=== PATIENT | female | born 1990 | race Caucasian/White ===

== ENCOUNTER 2017-11-25 14:14 | Inpatient (IN) | payer OTHER ==
[~2017-11-25] VITALS: Ht 170.2 cm; Wt 45.4 kg
[2017-11-25 14:37] LABS: ABSOLUTE BASOPHIL COUNT 0 /CUMM (0.0-0.2); ABSOLUTE EOSINOPHIL COUNT 0 /CUMM (0.0-0.7); ABSOLUTE GRANULOCYTE CT 5.9 /CUMM (1.4-6.5); ABSOLUTE LYMPH COUNT 2.8 /CUMM (1.2-3.4); ABSOLUTE MONOCYTE COUNT 0.6 /CUMM (0.10-0.60); BASOPHIL % 0.2 % (0.0-2.0); EOSINOPHIL % 0.5 % (0-5); GRANULOCYTE % 63.1 % (42.2-75.2); MEAN CORPUSCULAR HGB CONC 33.4 G/DL (33.0-37.0); MEAN PLATELET VOLUME 7.5 FL (7.4-10.4); PLATELET COUNT 327 /CUMM (130-400); RBC DISTRIBUTION WIDTH 13.1 % (11.5-14.5); WHITE BLOOD CELL COUNT 9.4 /CUMM (4.8-10.8)
--- NOTE | 2017-11-25 15:33 | ED PSYCHIATRIC COMPLAINT ---
See Addendum History of Present Illness General Chief Complaint: Psychiatric Related Complaint Stated Complaint: PSY Source: patient, old records Exam Limitations: PSYCHIATRIC DISORDER Allergies Coded Allergies: No Known Allergies (11/25/17) Reconcile Medications Buprenorphine (Buprenorphine HCl) 8 MG TAB.SUBL 2 TAB SL DAILY OPIOID DEPENDENCE (Reported) Dextroamphetamine/Amphetamine (Adderall XR 30 MG Capsule) 30 MG CAP.ER.24H 1 CAP PO QAM MENTAL HEALTH (Reported) Triage Note: PT STATES SHE NEEDS TO BE CHECKED OUT PT IS MOVING INTO HER BOYFRIENDS AND WANTS TO BE CHECKED OUT. PT WAS PICKED UP AT SCHOOL FOR MANIC BEHAVIOR. PT CURRENTLY AT [facility] FOR [employer] AND NOT ACTING APPROPRIATLY. PT MANIC INTRIAGE HAVING DIFFICULTY STAYING STILL. Triage Nurses Notes Reviewed? yes : No Patient currently breastfeeds: No HPI: Patient presents for evaluation of "doing everything checked out". Patient cannot be more specific than that. Patient is currently being treated for urinary tract infection with Macrobid. Patient states that she doesn't drink enough water as the underlying cause for her UTIs. (Pita GOMEZ,Tono Huber) Vital Signs & Intake/Output Vital Signs & Intake/Output Vital Signs Date Time Temp Pulse Resp B/P B/P Pulse O2 O2 Flow FiO2 Mean Ox Delivery Rate 11/26 1225 96.2 91 18 104/59 98 Room Air 11/26 0952 96.3 98 20 90/52 98 11/26 0806 97.1 109 20 106/58 100 Room Air 11/26 0602 96.7 90 18 99/60 98 Room Air 11/26 0306 97.2 86 18 92/56 98 Room Air 11/25 2242 96.6 94 20 92/51 99 Room Air 11/25 1855 97.1 88 19 107/61 100 Room Air ED Intake and Output 11/26 0000 11/25 1200 Intake Total 0 Output Total Balance 0 Intake, Oral 0 Patient 99 lb 15.99 oz Weight Weight Estimated Measurement Method (Tono Mensah DO) Past History Travel History Traveled to [place] past 21 day No Medical History Any Pertinent Medical History? see below for history Surgical History Surgical History: non-contributory Psychosocial History What is your primary language Sami Tobacco Use: Current Daily Use Daily Tobacco Use Amount/Type: => 5 Cigarettes daily ETOH Use: denies use Illicit Drug Use: marijuana Family History Hx Contributory? No (Pita GOMEZ,Tono Huber) Review of Systems Review of Systems Constitutional: Reports: no symptoms. EENTM: Reports: no symptoms. Respiratory: Reports: no symptoms. Cardiovascular: Reports: no symptoms. GI: Reports: no symptoms. Genitourinary: Reports: no symptoms. Musculoskeletal: Reports: no symptoms. Skin: Reports: no symptoms. Neurological/Psychological: Reports: no symptoms. Hematologic/Endocrine: Reports: no symptoms. Immunologic/Allergic: Reports: no symptoms. All Other Systems: Reviewed and Negative (Pita GOMEZ,Tono Huber) Physical Exam Physical Exam General Appearance: SEE BELOW Neurological/Psychiatric: SEE BELOW Comments: General: Alert, calm, cooperative Head: Normocephalic, atraumatic Eyes: Normal inspection, no nystagmus, EOMI Ears: Normal inspection Nose: Normal inspection Throat: Moist mucosa Neck: Supple, no goiter Heart: Regular rate and rhythm, no murmurs rubs or gallops Lungs: Clear to auscultation bilaterally with good air entry Abdomen: Soft nontender nondistended, normal bowel sounds Chest: Nontender Extremities: Normal range of motion grossly, mild tremors present, no cyanosis clubbing or edema of the upper extremities Neurologic: cranial nerves II through XII grossly intact, speech clear, gait normal Psychiatric: No apparent delusions or hallucinations, no pressured speech or thought blocking (Pita GOMEZ,Tono Huber) SAD PERSONS Done? unobtained due to conditi (Tono Mensah DO) Progress Comments: 11/25/2017 3:30:24 PM patient is being moved into a room from the hallway due to emotional lability and wandering about the emergency department. 11/25/2017 5:03:09 PM patient's case discussed with crisis. Awaiting medical clearance. Crisis is concerned about possible drug abuse or inappropriate use of her amphetamine prescription. Possible elio discussed as well. 11/26/2017 7:33:15 AM patient signed out to me by Dr. José at shift recovery coach. (Pita GOMEZ,Tono Huber) Differential Diagnosis: drug intoxication, drug overdose, PSYCHOSIS, ELIO Plan of Care: Orders Procedure Date/time Status Regular Diet 11/26 D Active Admit to inpatient psych 11/26 1447 Active Patient Data - inpatient psych 11/26 1428 Active Admit to inpatient psych 11/26 1428 Active Vital Signs 11/26 UNK Active Nursing Misc 11/26 UNK Active Alternative Nursing Therapy 11/26 UNK Active Activity/Ambulation 11/26 UNK Active Add-on Test (ER Only) 11/25 1701 Active Patient Safety Monitor 11/25 1604 Active ED CRISIS PSYCH CONSULT 11/25 1604 Active Add-on Test (ER Only) 11/25 1449 Active HUMAN BETA HCG SCREEN 11/25 1430 Complete ETHANOL 11/25 1430 Complete Current Medications Sig/Paola Start time Last Medication Dose Stop Time Status Admin Buprenorphine/ 2 TAB 0800 11/27 0800 UNVr Naloxone (Suboxone) Buprenorphine/ 1 TAB ONCE ONE 11/26 1500 UNVr Naloxone 11/26 1501 (Suboxone) Acetaminophen 325 MG Q6-PRN PRN 11/26 1445 UNVr (Tylenol) Al Hydroxide/Mg 30 ML Q4-6 PRN PRN 11/26 1445 UNVr Hydroxide (Maalox Plus) Benztropine Mesylate 1 MG Q6P PRN 11/26 1445 UNVr (Cogentin 1 MG Tablet) Benztropine Mesylate 1 MG Q6P PRN 11/26 1445 UNVr (Cogentin 1 MG Tablet) Benztropine Mesylate 1 MG Q6P PRN 11/26 1445 UNVr (Cogentin) Haloperidol 5 MG Q6P PRN 11/26 1445 UNVr (Haldol) Haloperidol 5 MG Q6P PRN 11/26 1445 UNVr (Haldol) Haloperidol 5 MG Q6P PRN 11/26 1445 UNVr (Haldol) Lorazepam 2 MG Q6P PRN 11/26 1445 UNVr (Ativan) Lorazepam 2 MG Q6P PRN 11/26 1445 UNVr (Ativan) Lorazepam 2 MG Q6P PRN 11/26 1445 UNVr (Ativan) Magnesium Hydroxide 30 ML AT BEDTIME PRN 11/26 1445 UNVr (Milk Of Magnesia) Laboratory Tests 11/25/17 1900: Urine Opiates Screen < 100, Methadone Screen < 40, Barbiturate Screen < 60, Ur Phencyclidine Scrn < 6.00, Amphetamines Screen > 1450 H, U Benzodiazepines Scrn < 85, Urine Cocaine Screen < 50, Urine Cannabis Screen > 80.00 H, Urine Color YEL, Urine Clarity CLEAR, Urine pH 6.0, Ur Specific Kendrick 1.020, Urine Protein TRACE H, Urine Ketones NEG, Urine Nitrite NEG, Urine Bilirubin NEG, Urine Urobilinogen 0.2, Ur Leukocyte Esterase TRACE H, Ur Microscopic SEDIMENT EXAMINED, Urine RBC 1-3, Urine WBC 3-5 H, Ur Epithelial Cells MOD H, Urine Mucus MOD H, Urine Hemoglobin LARGE H, Urine Glucose NEG, Urine Test NEGATIVE Initial ED EKG: none (Tono Mensah DO) Hand-Off Endorsed To: Tono Lema MD Endorsed Time: 0700 Pending: consult (Arnav GOMEZ,Hu Hidalgo) Departure Departure Condition: Stable Departure Forms: Customer Survey General Discharge Information Psych Admission Note Psychiatric Admission: I have seen and evaluated RAMU STOKES. I have also reviewed all the pertinent lab results and diagnostic results. RAMU STOKES will be admitted to our inpatient Psychiatric unit for treatment and care. (Pita GOMEZ,Tono Huber) Departure Disposition: STILL A PATIENT Clinical Impression Primary Impression: Substance abuse Secondary Impressions: Agitation, Elio Comments 11/25/17 11 PM The patient was signed out to me by Dr. Lema. On reevaluation she was awake alert and oriented but highly anxious. U tox was positive for amphetamines and cannabis. She was signed out to Dr. José at 11 PM. She is for crisis evaluation in the a.m. (Tono Mensah DO)
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
--- NOTE | 2017-11-26 09:40 | ED PSYCH CRISIS CONSULTATION ---
Crisis Consult Basic Assessment Date of Consult: 11/26/17 Responsible Person/Accompanied By: Self Insurance Authorization: Insurance #1: Insurance name: DORIE GONZALEZ Phone number: Policy number: [id number] Group number: Authorization number: ED Provider: Patient's ED Provider: Tono Mensah DO Primary Care Physician: Patient's PCP: Patient Has No Primary Care Dr PCP's Phone Number: Current Psychiatrist: Loni Gallardo MD Chief Complaint: change in mental status Patient's Quote: "I don't know how I got here, I thought everything was getting better" Present Illness: Pt is a 27 year old female BIBA from school due to recent change in pts bx. 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 Munoz (sheet metal shop supervisor of nursing program) reports the pt has been displaying "bx out of the norm". Pt reports she came to the ED to get "checked out" stating, "My boyfriend wanted me to come for a blood test to make sure I don't have anything before I move in with him." The pt does not remember being brought to ED by ambulance. This service writer called the pt's boyfriend, Zeeshan, on the number provided by the pt, Zeeshan stated that he does not know who the pt is. The pt does not exhibit insight to current sx. The pt presents with labile mood, agitated and guarded affect with hesitant and repetitive speech, oriented x3, wearing blue hospital scrubs with no remarkable features. Pt presented to ED having loud conversations with herself in the hallway and becoming increasingly agitated, requiring medication. Pt stated, "I don't know why I am here I thought things were getting better." Pt repeatedly asked to be released and go home, when this service writer informed the pt of possible admission she became agreeable and compliant, signing in voluntarily. Pt denies SI/HI/AH/VH, depression, anxiety, trauma. Pt denies any changes in sleep, appetite, energy, concentration, or memory. The pt reports hx of SA stating she would take 90mg "or more" a day, every day. The pt could not identify the length of time, stating "I don't know a long time." The pt received tx at [facility] in [place]. The pt continues to see prescriber at [facility], pt is prescribed adderall and suboxone. The pt states she has not used opiates since . Pt reports she smokes marijuana 1x a week, last use 11/25/17 and denies use of alcohol. Pt's Suboxone confirmed by nurse at [facility], 16mg/day (prescribed 8mg with instruction to take 2 tabs 1x daily). This service writer spoke with Dr. Munoz from [facility] who called 911. Dr. Muonz reported 11/24/17 multiple instructors contacted her with concerns re: the pt's bx. Dr. Munoz reports when she approached pt at school she had her down in front of a computer and was talking to herself "saying random things and cursing". Dr. Munoz stated the pt presented labile with flight of ideas.The pt referred to previous conversations she had with Dr. Munoz who noted that she has never spoke with the pt before. Dr. Munoz reported she pt expressed paranoid delusions including: the other student are putting poison in her coffee and everyone at school is out to get her. Dr. Munoz reported the pt has said," you are all out to get me, I have dirt on all of you." This service writer spoke with the pt's brother, Mauricio Lee [phone], who stated, "I am not surprised she is there, she has josue unhinged since she was a teenager." The pt's brother reports hx of erratic bx and fits of anger. Pt's brother stated at times the pt will stay in her room and "withdraw from the world." The pt's brother reported the pt has had a hard time "staying mentally stable". Mauricio also reported that there has been no formal psychiatric treatment to his knowledge. This service writer spoke with the pt's father Odin. The pt's father reports the pt has always been impulsive and "extremely emotional". Odin reported when the pt was 19 in the [employer] (for 6 years) she had eloped and had the marriage annulled within 3 months. Odin confirms the pt has had no psychiatric tx despite hx of extreme emotions and poor judgement. Odin also stated that the pt gets very angry very quickly. The pt's father reports that he believes his daughter needs inpatient tx. Patient's Address: [address] [place] [address],[place] [id number] Other Phone Number: Who Do You Live With? Family Family/Informants Interviewed: Spoke with Pt's Brother Mauricio Humphrey [phone] Allergies - Coded Allergies: No Known Allergies (11/25/17) Current Medications - Scheduled Medications Buprenorphine (Buprenorphine HCl) 8 MG TAB.SUBL 2 TAB SL DAILY OPIOID DEPENDENCE #60 (Reported) Entered as Reported by Oscar Austin on 11/26/17 1226 Dextroamphetamine/Amphetamine (Adderall XR 30 MG Capsule) 30 MG CAP.ER.24H 1 CAP PO QAM MENTAL HEALTH #30 (Reported) Entered as Reported by Oscar Austin on 11/26/17 1227 Laboratory Results: Laboratory Tests 11/25/17 1900: Urine Opiates Screen < 100, Methadone Screen < 40, Barbiturate Screen < 60, Ur Phencyclidine Scrn < 6.00, Amphetamines Screen > 1450 H, U Benzodiazepines Scrn < 85, Urine Cocaine Screen < 50, Urine Cannabis Screen > 80.00 H, Urine Color YEL, Urine Clarity CLEAR, Urine pH 6.0, Ur Specific Talmo 1.020, Urine Protein TRACE H, Urine Ketones NEG, Urine Nitrite NEG, Urine Bilirubin NEG, Urine Urobilinogen 0.2, Ur Leukocyte Esterase TRACE H, Ur Microscopic SEDIMENT EXAMINED, Urine RBC 1-3, Urine WBC 3-5 H, Ur Epithelial Cells MOD H, Urine Mucus MOD H, Urine Hemoglobin LARGE H, Urine Glucose NEG, Urine Test NEGATIVE 11/25/17 1430: Anion Gap 14, Estimated GFR > 60, BUN/Creatinine Ratio 36.7 H, Glucose 84, Calcium 9.6, Total Bilirubin 0.8, AST 28, ALT 63 H, Alkaline Phosphatase 55, Total Protein 8.1, Albumin 5.2 H, Globulin 2.9, Albumin/Globulin Ratio 1.8, Total Beta HCG NEGATIVE, CBC w Diff NO MAN DIFF REQ, RBC 4.30, MCV 93.0, MCH 31.0, MCHC 33.4, RDW 13.1, MPV 7.5, Gran % 63.1, Lymphocytes % 29.4, Monocytes % 6.8, Eosinophils % 0.5, Basophils % 0.2, Absolute Granulocytes 5.9, Absolute Lymphocytes 2.8, Absolute Monocytes 0.6, Absolute Eosinophils 0, Absolute Basophils 0, Serum Alcohol < 10.0 Past History Past Surgical History Surgical History: non-contributory Psychosocial History Strengths/Capabilities: Supportive family, pt is intelligent Physical Limitations (Interventions): n/a Psychiatric Treatment History Psych Treatment Psychiatric Treatment No Inpatient Treatment No Outpatient Treatment No Location of Treatment n/a Reason for Treatment n/a Dates of Treatment n/a Response to Treatment n/a Diagnosis by History: F11.20 Opiod Use d/o Substance Use/Abuse History Drug Use/Abuse 1 Substances Used/Abused Yes Substance Used/Abused Non-Prescribed Opiates First Use 22 Last Used 03/2017 How much used/taken 90mg How often daily For how long unknown Route of use intranasally Drug Use/Abuse 2 Substances Used/Abused Yes Substance Used/Abused Marijuana First Use 16 Last Used 11/25/17 How much used/taken "1 joint a week" How often "1 joint a week" For how long 2 years Route of use inhalation Substance Abuse Treatment Substance Abuse Treatment Past Substance Abuse TX Yes Inpatient Treatment No Outpatient Treatment Yes Location of Treatment [facility] Reason for Treatment Opiod abuse Dates of Treatment pt rpeorts around 02/2017 Response to Treatment pt reports she has not used opiods since 03/2017, is still smoking marijuana Comments: Pt reports she does not drink. Pt is prescribed Suboxone at [facility] Current Mental Status Mental Status Orientation: Person, Place, Situation Affect: Labile Speech: Delayed, Soft (hesitant) Neuro-vegetative: Concentration Poor, Energy Increased, Hyperactivity Appearance Appearance- Dress/Hygiene: Pt well-groomed in bed wearing blue hospital scrubs Behaviors Thought Process: Irrational Thought Content: Delusions, Paranoid Memory: Impaired Insight: Poor SI/HI Risk Assessment Past Suicidal Ideation/Attempts No Current Suicidal Ideation/Att No Past Homicidal Ideation/Att: No Current Homicidal Ideation/Attempts No Degree of Intent: None Danger To: Others, Self Gravely Disabled: Lack of Insight, Poor Impulse Control, Poor Judgment Risk Factors: high anxiety/distress, SA/MH hospitalized, substance abuse, poor impulse control Lethality Ratin PTSD Checklist PTSD Done? patient declined (denies trauma hx) ED Management Sitter: Yes Restraints: No DSM5/PS Stressors/Medical Prob Diagnosis' (DSM 5, Stressors, Medical): F29 Unspecified Schizophrenia Spectrum and other psychotic disorder F11.20 Opiate use D/O Moderate Current GAF: 25 Departure Disposition Psych Medical Clearance Date: 11/26/17 Medically Cleared at: 0800 Time Started: 0900 Time Ended: 1000 Psychiatrist Consulted: Loni Gallardo MD Date Disposition Established: 11/26/17 Time Disposition Established: 1300 Plan for Disposition - Modality: Inpatient Psychiatry Facility: [facility] Rationale for Disposition: Case reviewed with Dr. Gallardo, pt is recommended to inpatient admission. Pt expresses paranoia stating her peers at school are out to get her. The pt reports delusions. Pt reports moving in with a boyfriend who, when contacted by this service writer, reported that he did not know her. Pt's family and school staff are concerned for pt's safety. Pt will be admitted for further evaluation, monitor for safety, and explore treatment options. Type of IP Admission: Voluntary Referrals Patient Has No Primary Care Dr (PCP/Family)
[2017-11-26] MEDS ORDERED: BUPRENORPHINE HC8 MG SL (12:26)
[2017-11-26] MEDS ORDERED: ADDERALL XR 3030 MG PO (12:27)
--- NOTE | 2017-11-26 15:40 | IP CRISIS DIAG ASSESS PSYCH ---
Kitty Montenegro 11/26/17 1533: Diagnostic Assessment Basic Assessment Insurance Authorization: Insurance #1: Insurance name: DORIE GONZALEZ Phone number: Policy number: [id number] Group number: Authorization number: Primary Care Physician: Patient's PCP: Patient Has No Primary Care Dr PCP's Phone Number: Patient's Quote: "I don't know how I got here, I thought everything was getting better" Present Illness: Pt is a 27 year old female BIBA from school due to recent change in pts bx. Pt is a document control associate at [employer], Dr. Munoz (vacuum metalizing supervisor of nursing program) reports the pt has been displaying "bx out of the norm". Pt reports she came to the ED to get "checked out" stating, "My boyfriend wanted me to come for a blood test to make sure I don't have anything before I move in with him." The pt does not remember being brought to ED by ambulance. This writer editor called the pt's boyfriend, Zeeshan, on the number provided by the pt, Zeeshan stated that he does not know who the pt is. The pt does not exhibit insight to current sx. The pt presents with labile mood, agitated and guarded affect with hesitant and repetitive speech, oriented x3, wearing blue hospital scrubs with no remarkable features. Pt presented to ED having loud conversations with herself in the hallway and becoming increasingly agitated, requiring medication. Pt stated, "I don't know why I am here I thought things were getting better." Pt repeatedly asked to be released and go home, when this writer editor informed the pt of possible admission she became agreeable and compliant, signing in voluntarily. Pt denies SI/HI/AH/VH, depression, anxiety, trauma. Pt denies any changes in sleep, appetite, energy, concentration, or memory. The pt reports hx of SA stating she would take 90mg "or more" a day, every day. The pt could not identify the length of time, stating "I don't know a long time." The pt received tx at [facility] in [place]. The pt continues to see prescriber at [facility], pt is prescribed adderall and suboxone. The pt states she has not used opiates since . Pt reports she smokes marijuana 1x a week, last use 11/25/17 and denies use of alcohol. Pt's Suboxone confirmed by nurse at [facility], 16mg/day (prescribed 8mg with instruction to take 2 tabs 1x daily). This writer editor spoke with Dr. Munoz from [employer] who called 911. Dr. Munoz reported 11/24/17 multiple instructors contacted her with concerns re: the pt's bx. Dr. Munoz reports when she approached pt at school she had her down in front of a computer and was talking to herself "saying random things and cursing". Dr. Munoz stated the pt presented labile with flight of ideas.The pt referred to previous conversations she had with Dr. Munoz who noted that she has never spoke with the pt before. Dr. Munoz reported she pt expressed paranoid delusions including: the other student are putting poison in her coffee and everyone at school is out to get her. Dr. Munoz reported the pt has said," you are all out to get me, I have dirt on all of you." This writer editor spoke with the pt's brother, Mauricio Lee [phone], who stated, "I am not surprised she is there, she has josue unhinged since she was a teenager." The pt's brother reports hx of erratic bx and fits of anger. Pt's brother stated at times the pt will stay in her room and "withdraw from the world." The pt's brother reported the pt has had a hard time "staying mentally stable". Mauricio also reported that there has been no formal psychiatric treatment to his knowledge. This writer editor spoke with the pt's father Odin. The pt's father reports the pt has always been impulsive and "extremely emotional". Odin reported when the pt was 19 in the [employer] (for 6 years) she had eloped and had the marriage annulled within 3 months. Odin confirms the pt has had no psychiatric tx despite hx of extreme emotions and poor judgement. Odin also stated that the pt gets very angry very quickly. The pt's father reports that he believes his daughter needs inpatient tx. Patient's Address: [address] [place] [id number] Other Phone Number: Who Do You Live With? Family Feel Safe Where You Live? Yes Feel Safe in Your Relationship No If No, Please Elaborate: Pt reports she does not trust anyone or their intentions. Pt states she does not feel anyone will physically harm her. Marital Status: single Do You Have Children? No Primary Language? Emirati Language(s) Spoken At Home: Emirati Family/Informants Interviewed: Spoke with Pt's Brother Mauricio Humphrey Allergies - Coded Allergies: No Known Allergies (11/25/17) Consequences of Psych Med Use: No hx of psych medication Lab Results: Laboratory Tests 11/25/17 1900: Urine Opiates Screen < 100, Methadone Screen < 40, Barbiturate Screen < 60, Ur Phencyclidine Scrn < 6.00, Amphetamines Screen > 1450 H, U Benzodiazepines Scrn < 85, Urine Cocaine Screen < 50, Urine Cannabis Screen > 80.00 H, Urine Color YEL, Urine Clarity CLEAR, Urine pH 6.0, Ur Specific [place] 1.020, Urine Protein TRACE H, Urine Ketones NEG, Urine Nitrite NEG, Urine Bilirubin NEG, Urine Urobilinogen 0.2, Ur Leukocyte Esterase TRACE H, Ur Microscopic SEDIMENT EXAMINED, Urine RBC 1-3, Urine WBC 3-5 H, Ur Epithelial Cells MOD H, Urine Mucus MOD H, Urine Hemoglobin LARGE H, Urine Glucose NEG, Urine Test NEGATIVE Toxicology Screen Completed? Yes Results: positive Symptoms of Use: Pt prescribed aderrol and Suboxone. Pt tested positive for Marijuana which she states she smokes 1x weekly. Pt stated she will take multiple doses of aderrol occasionally. Past History Past Medical History Medical History: None/Denies Past Surgical History Surgical History none Abuse/Trauma History Trauma History/Current Trauma: Denies Legal History Current Legal Status: none Have you ever been arrested? No Number of Arrests: [address] Dates: n/a Stripper And Printer n/a Psychosocial History Strengths/Capabilities: Supportive family, pt is intelligent Physical Limitations (Interventions): n/a Psychiatric Treatment History Psych Treatment Psychiatric Treatment No Inpatient Treatment No Outpatient Treatment No Location of Treatment n/a Reason for Treatment n/a Dates of Treatment n/a Response to Treatment n/a Diagnosis by History: F11.20 Opiod Use d/o Risk Factors: high anxiety/distress, SA/MH hospitalized, substance abuse, poor impulse control Substance Use/Abuse History Drug Use/Abuse minimum 12mo Hx Substances Used/Abused Yes Substance Used/Abused Marijuana First Use 16 Last Used 11/25/17 How much used/taken "1 joint a week" How often "1 joint a week" For how long 2 years Route of use inhalation Substance Abuse Treatment Substance Abuse Treatment Past Substance Abuse [place] Yes Inpatient Treatment No Outpatient Treatment Yes Location of Treatment [facility] in [place] Reason for Treatment Opiod abuse Dates of Treatment pt rpeorts around 02/2017 Response to Treatment pt reports she has not used opiods since 03/2017, is still smoking marijuana Sexual History Sexually Active No # of partners 0 Sexual Orientation Heterosexual Use of Protection No (n/a) Sexual Concerns: n/a Education History Highest Level of Education: some college, 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 Preferred Learning Style: visual, auditory, experiential Current Mental Status Mental Status Orientation: Person, Place, Situation Affect: Labile Speech: Delayed, Soft (hesitant) Neuro-vegetative: Concentration Poor, Energy Increased, Hyperactivity Appearance Appearance- Dress/Hygiene: Pt well-groomed in bed wearing blue hospital scrubs Behaviors Thought Process: Irrational Thought Content: Delusions, Paranoid Memory: Impaired Insight: Poor SI/HI Risk Assessment - Minimum 6mo History- Past Suicidal Ideation/Attempts No Current Suicidal Ideation/Att No Past Homicidal Ideation/Att: No Current Homicidal Ideation/Attempts No Degree of Intent: None Danger To: Others, Self Gravely Disabled: Lack of Insight, Poor Impulse Control, Poor Judgment Risk Factors: high anxiety/distress, SA/MH hospitalized, substance abuse, poor impulse control Lethality Ratin Needs/Init TX Plan/Goals: Case reviewed with Dr. Gallardo, pt reccomended for CPS. Pt requires ongoing monitoring to further assess change in mental status, possible medication management, and monitor for safety. AUDIT-C Questionnaire: AUDIT-C Questionnaire: Response Value ETOH use in the past year Monthly or less 1 # drinks typical/day Doesn't Drink 0 6 or > drinks per occasion Never 0 Total 1 DSM5/PS Stressors/Medical Prob Diagnosis' (DSM 5, Stressors, Medical): F29 Unspecified Schizophrenia Spectrum and other psychotic disorder F11.20 Opiate use D/O Moderate Current GAF: 25 Jonathan Damian 11/26/17 9609: Addendum Addendum Member Name Member ID Member Subscriber Name Subscriber ID RAMU LEE [id number] 1990 RAMU FREREIRAKORINLEON [id number] Pended Authorization # Client Authorization # Type of Request [id number] INITIAL Date of Admission/ Start of Services Requested From Submission Date 11/26/2017 11/26/2017 11/26/2017 Level of Service Type of Service Level of Care Type of Care INPATIENT/[facility]PATIENT [facility] - [facility]PATIENT [facility]OSPITAL Reason Code P77 Provider Name & Address Provider ID Provider Alternate ID NPI # for Authorization MONAE DAMIAN [address] [place] [id number] DSM5/PS Stressors/Medical Prob Diagnosis' (DSM 5, Stressors, Medical): F29 Unspecified Schizophrenia Spectrum and other psychotic disorder F11.20 Opiate use D/O Severe in maintenence therapy 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 F12.20 Cannabis Use D/O Current GAF: 25 Current Mental Status SI/HI Risk Assessment - Minimum 6mo History- Loni Gallardo MD 12/02/17 1826: Diagnostic Assessment Current Medications - Scheduled Medications Aripiprazole (Abilify) 5 MG TABLET 1 TAB PO DAILY thought organization #30 TAB Prescribed by Louie Garcia MD on 12/01/17 Buprenorphine (Buprenorphine HCl) 8 MG TAB.SUBL 2 TAB SL DAILY OPIOID DEPENDENCE #60 Prescribed by Louie Garcia MD on 12/01/17 Scheduled PRN Medications Trazodone HCl 50 MG TABLET 50 MG PO QPM PRN SLEEP #1 TAB Prescribed by Louie Garcia MD on 12/01/17 Discontinued Medications Dextroamphetamine/Amphetamine (Adderall XR 30 MG Capsule) 30 MG CAP.ER.24H 1 CAP PO QAM MENTAL HEALTH #30 (Reported) Discontinued reason: Per Doctor Decision Current Mental Status SI/HI Risk Assessment - Minimum 6mo History-
--- NOTE | 2017-11-26 16:10 | SOCIAL WORKER SOCIAL HX PSYCH ---
Social History Basic Assessment Insurance Authorization: Insurance #1: Insurance name: DORIE GONZALEZ Phone number: Policy number: [id number] Group number: Authorization number: Curr Source of Income/Entitlements: Living with family and no source of income. Primary Care Physician: Patient's PCP: Patient Has No Primary Care Dr PCP's Phone Number: Present Problem: The following is taken from the diagnostic completed by Michelle Montenegro (Crisis Natural Resources Extension Educator) today: Pt is a 27 year old female BIBA from school due to recent change in pts bx. 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 Munoz (land management supervisor of nursing program) reports the pt has been displaying "bx out of the norm". Pt reports she came to the ED to get "checked out" stating, "My boyfriend wanted me to come for a blood test to make sure I don't have anything before I move in with him." The pt does not remember being brought to ED by ambulance. This song writer called the pt's boyfriend, Zeeshan, on the number provided by the pt, Zeeshan stated that he does not know who the pt is. The pt does not exhibit insight to current sx. The pt presents with labile mood, agitated and guarded affect with hesitant and repetitive speech, oriented x3, wearing blue hospital scrubs with no remarkable features. Pt presented to ED having loud conversations with herself in the hallway and becoming increasingly agitated, requiring medication. Pt stated, "I don't know why I am here I thought things were getting better." Pt repeatedly asked to be released and go home, when this song writer informed the pt of possible admission she became agreeable and compliant, signing in voluntarily. Pt denies SI/HI/AH/VH, depression, anxiety, trauma. Pt denies any changes in sleep, appetite, energy, concentration, or memory. The pt reports hx of SA stating she would take 90mg "or more" a day, every day. The pt could not identify the length of time, stating "I don't know a long time." The pt received tx at [facility] in [place]. The pt continues to see prescriber at [facility], pt is prescribed adderall and suboxone. The pt states she has not used opiates since . Pt reports she smokes marijuana 1x a week, last use 11/25/17 and denies use of alcohol. Pt's Suboxone confirmed by nurse at [facility], 16mg/day (prescribed 8mg with instruction to take 2 tabs 1x daily). This song writer spoke with Dr. Munoz from [facility] [employer] who called [address]. [address] Munoz reported 11/24/17 multiple instructors contacted her with concerns re: the pt's bx. Dr. Munoz reports when she approached pt at school she had her down in front of a computer and was talking to herself "saying random things and cursing". Dr. Munoz stated the pt presented labile with flight of ideas.The pt referred to previous conversations she had with Dr. Munoz who noted that she has never spoke with the pt before. Dr. Munoz reported she pt expressed paranoid delusions including: the other student are putting poison in her coffee and everyone at school is out to get her. Dr. Munoz reported the pt has said," you are all out to get me, I have dirt on all of you." This song writer spoke with the pt's brother, Mauricio Lee [phone], who stated, "I am not surprised she is there, she has josue unhinged since she was a teenager." The pt's brother reports hx of erratic bx and fits of anger. Pt's brother stated at times the pt will stay in her room and "withdraw from the world." The pt's brother reported the pt has had a hard time "staying mentally stable". Mauricio also reported that there has been no formal psychiatric treatment to his knowledge. This song writer spoke with the pt's father Odin. The pt's father reports the pt has always been impulsive and "extremely emotional". Odin reported when the pt was 19 in the [employer] (for 6 years) she had eloped and had the marriage annulled within 3 months. Odin confirms the pt has had no psychiatric tx despite hx of extreme emotions and poor judgement. Odin also stated that the pt gets very angry very quickly. The pt's father reports that he believes his daughter needs inpatient tx. Primary Language? Yoruba Language(s) Spoken At Home: Yoruba Living Situation Other Living Arrangement: relative's/guardian's vitaliy Feel Safe Where You Are Living Yes Feel Safe in Relationships? No Allergies - Coded Allergies: No Known Allergies (11/25/17) Current Medications - Scheduled Medications Buprenorphine (Buprenorphine HCl) 8 MG TAB.SUBL 2 TAB SL DAILY OPIOID DEPENDENCE #60 (Reported) Entered as Reported by Oscar Austin on 11/26/17 1226 Dextroamphetamine/Amphetamine (Adderall XR 30 MG Capsule) 30 MG CAP.ER.24H 1 CAP PO QAM MENTAL HEALTH #30 (Reported) Entered as Reported by Oscar Austin on 11/26/17 1227 Consequences of Psych Med Use: Prescribed Adderal for ADHD. Pt states she recently took more than prescribed. Past History Past Medical History Psychiatric: substance abuse, ADHD, Suboxone maintence therapy Past Surgical History Surgical History: non-contributory /Family History Place/Country of Origin: [place] Childhood Family Constellation: Parents and brother. Primary Childhood Caretakers: father, mother Family Life During Childhood: "Happy" DCF Involvement? No Mother's Age (Current/): 58 Relationship w/Mother: "on going. has to be tighter" Father's Age (Current/): 58 Relationship w/Father: "on going. Has to be tighter" Any Sibling(s)? Yes Sibling's Gender(s)/Age(s): male Sibling 1: (30) Relationship w/Sibling(s): "he's ok" Relationship w/Friends: "pretty good, we talk" Family Psych/Sub Abuse/Add Hx: Maternal grandmother overdosed at 36 and . Cousins have history of substance abuse. Number of Pregnancies: 0 Number of Miscarriages: 0 Number of Abortions: 0 Abuse/Trauma History Trauma History/Current Trauma: Denies History of Trauma/Abuse Treatment? No Abuse/Trauma Treatment: n/a Legal History Current Legal Status: none Have you ever been arrested No Number of Arrests: 0 Hx of Juvenile Legal Charges? No Hx of Adult Legal Charges? No Race Steward n/a Psychosocial History Primary Support System: father, mother Strengths/Capabilities: Supportive family, pt is intelligent Physical Limitations (Interventions): n/a Last Physical: january 2017 History of Seizures? No History of Blackouts? No [place]/Social/Peer Relations "pretty good" Meaningful Activities: Gym and school. Childhood Moravian: Restorationism Current Confucianism Affiliation: Restorationism Is Spirituality Important to You? yes Patient's Ethnicity: Romanian, Finnish Cultural/Ethnic Issues: unknown Are There Developmental Issues? No Milestones Achieved: fine motor, gross motor Psychiatric Treatment History Psych Treatment Inpatient Treatment No Outpatient Treatment No Location of Treatment n/a Reason for Treatment n/a Dates of Treatment n/a Response to Treatment n/a Current Financial Planning Analyst: [facility] Treatment of Prior Episodes: n/a Diagnosis: ADHD Psychodynamic Issues: no Risk Factors: high anxiety/distress, SA/MH hospitalized, substance abuse, poor impulse control, limited support Substance Use/Abuse History Drug Use/Abuse 1 Substance Used/Abused Marijuana First Use 16 Last Used 11/25/17 How much used/taken "1 joint a week" How often "1 joint a week" For how long 2 years Route of use inhalation Drug Use/Abuse 2 Substance Used/Abused Prescribed Opiates First Use january 2017 Last Used 11/26/17 How much used/taken 2mg How often daily For how long since start Route of use oral Drug Use/Abuse 3 Substance Used/Abused Other (list in comments) (Aderall) First Use 2008 Last Used 11/25/17 How much used/taken prescibed 30mg but took two or three tablets. How often Takes daily but takes more than prescibed at times. Route of use oral Have Had Periods of Sobriety? Yes Explain: Pt has not used opiates and is prescribed Suboxone. Have You Ever Attended AA? No Do You Attend AA Currently? No Do You Have a Sponsor? No Symptoms of Use: Pt prescribed aderrol and Suboxone. Pt tested positive for Marijuana which she states she smokes 1x weekly. Pt stated she will take multiple doses of aderral occasionally. 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 of Jobs in Last 5 Years: 10 Attendance: Was okay when not using Performance: Average History Have You Been in The ? Yes If Yes, Explain: [employer] for 5 years and then honorably discharged. Type of Discharge: Honorable Date of Discharge: unk Current Mental Status Mental Status Orientation: Person, Place, Situation Affect: Labile Speech: Delayed, Soft (hesitant) Neuro-vegetative: Concentration Poor, Energy Increased, Hyperactivity Appearance Appearance- Dress/Hygiene: Pt well-groomed in bed wearing blue hospital scrubs Behaviors Thought Process: Irrational Thought Content: Delusions, Paranoid Memory: Impaired Insight: Poor SI/HI Risk Assessment Past Suicidal Ideation/Attempts No Current Suicidal Ideation/Att No Past Homicidal Ideation/Att: No Current Homicidal Ideation/Attempts No Degree of Intent: None Danger To: Others, Self Gravely Disabled: Lack of Insight, Poor Impulse Control, Poor Judgment Risk Factors: High Anxiety/Distress, Isolated/no social suppor, Poor impulse control, Substance Abuse Lethality Ratin - Conclusion and Recommendations for treatment - and discharge planning Summary: This document was completed by Vannessa Virk (crisis actuarial internship) and reviewed by Ratna Garcia LCSW- actuarial internship's land management supervisor.
[2017-11-26 18:32] VITALS: BP 106/62
[2017-11-26 20:02] VITALS: BP 109/57
[2017-11-27 07:59] VITALS: BP 101/61
--- NOTE | 2017-11-27 11:21 | CPS PROVIDER INIT ASMT PSYCH ---
Psychiatric Admission Supervisor Paint's Note Reviewed: Yes Patient Seen and Examined: Yes Identifying Information: Pt is a 27 year old single White female BIBA from school due to recent change in pt's behavior. 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 Munoz (cytotechnologist supervisor of nursing program) reports the pt has been displaying "behaviors out of the norm". Pt reports she came to the ED to get "checked out" stating, "My boyfriend wanted me to come for a blood test to make sure I don't have anything before I move in with him." The pt does not remember being brought to ED by ambulance. This telegraphic typewriter operator called the pt's boyfriend, Zeeshan, on the number provided by the pt, Zeeshan stated that he does not know who the pt is. The pt presents with labile mood, agitated and guarded affect with hesitant and repetitive speech, oriented x3, wearing blue hospital scrubs with no remarkable features. Pt presented to ED having loud conversations with herself in the hallway and becoming increasingly agitated, requiring medication. Pt stated, "I don't know why I am here I thought things were getting better." Pt repeatedly asked to be released and go home, when this telegraphic typewriter operator informed the pt of possible admission she became agreeable and compliant, signing in voluntarily. Pt denies SI/HI/AH/VH, depression, anxiety, trauma. The pt reports hx of abusing Adderall stating she would take 90mg "or more" a day, every day. The pt could not identify the length of time, stating "I don't know a long time." The pt received tx at [facility] in [place]. The pt continues to see prescriber at [facility], pt is prescribed adderall and suboxone. The pt states she has not used opiates since 03/2007. Pt reports she smokes marijuana 1x a week, last use 11/25/17 and denies use of alcohol. Pt's Suboxone confirmed by nurse at [facility], 16mg/ day (prescribed 8mg with instruction to take 2 tabs 1x daily)." Circumstances Leading to Admission: bizarre behaviors Problem(s) Justifying Need for Admission: possible substance-induced disorganized thinking and behavior Past Psychiatric History Past Diagnosis(es)- if any: ADHD Opioid Use Disorder Past Precipitating Factors- if any: this is her first inpatient psychiatric admission, it appears that the precipitant was stimulant abuse - Include inpatient and outpatient treatment Treatment History: The pt received tx at [facility] in [place]. The pt continues to see prescriber at [facility], pt is prescribed adderall and suboxone. The pt states she has not used opiates since 03/2007. History of Suicide Attempts or Gestures She denied suicide attempts Substance Abuse History: Opioid Use Disorder, on Suboxone 16 mg daily Stimulant Use Disorder (abuse of prescribed amphetamine salts) Cannabis Use Disorder Allergies: Coded Allergies: No Known Allergies (11/25/17) Home Med List: Suboxone 16 mg per day Adderall (? 60 mg daily but was taking 90 mg daily) - Include any medical condition(s) that may - impact the patient's recovery/remission Past Medical History: physically healthy Past History Medical History Neurological: NONE EENT: NONE Cardiovascular: NONE Respiratory: NONE Gastrointestinal: NONE Hepatic: NONE Renal: NONE Musculoskeletal: NONE Psychiatric: substance abuse, ADHD Suboxone maintence therapy Endocrine: NONE Blood Disorders: NONE Cancer(s): NONE GLASS LOADING EQUIPMENT TENDER/Reproductive: NONE History of MRSA: No History of VRE: No History of CDIFF: No Isolation History: Standard Influenza Vaccine: 05/18/17 Surgical History Surgical History: none Psychiatric Family/Social Hx Family History Psychiatric Illness: mother has depression Father has anxiety Maternal grandmother committed suicide Substance Use: No family history of alcoholism or drug use Suicides: maternal grandmother committed suicide Social History Living Situation: she lives with parents in [place] Significant Relationships (family/friends): parents and brother Education: 2nd semester for an [employer] Vocation/Occupation: student at a technical college Legal: denied arrests Healthly Behaviors Screening Tobacco Screening Tobacco Use from ED Docu: Current Daily Use Daily Tobacco Use Amount/Type: => 5 Cigarettes daily - If tobacco counseling indicated - the following topics are required. - #1 Recognizing dangerous situations. - #2 Coping Skills. - #3 Basic information about quitting. Status of Tobacco Cessation Counseling: #1, #2 AND #3 Completed Cessation Med Status Nicotine Gum Ordered Alcohol Screening - ETOH screen POS if BAL >=80 or Audit-C>= M4/F3 Audit-C Score from Diag Assess: 1 Blood Alcohol Level: Laboratory Tests 11/25 1430 Toxicology Serum Alcohol (<10 MG/DL) < 10.0 Alcohol Use Screening Results: Neg per Audit C &/or BAL - If ETOH counseling indicated - the following topics are required. - #1 Express concern about the patient's - drinking at unhealthy levels, include informing - of national norms for moderate drinking: - men <= 14 drinks/week, max 4 drinks/occasion - women <= 7 drinks/week, max 3 drinks/occasion - #2 Providing feedback, including linking alcohol to - negative physical effects (liver injury, hypertension) - negative emotional effects (relationship problems and - depression) - negative occupational consequences (reduced work - performance) - #3 Advising the patient to abstain from alcohol or - to drink below national norms for moderate drinking - (as listed above). Status of ETOH Use Counseling: N/A B/C NO ETOH Use Metabolic Screening - Screen if on a Neuroleptic Medication - Metabolic screening should include: - Blood Pressure, BMI, Glucose or Hgb A1c, & a - Lipid profile from within the past 365 days. Metabolic Screening ([X]) Not Applicable, patient not on a neuroleptic. Exam and Plan Mental Status Examination Ambulation Status: The patient is fully mobile, she is a steady on her feet Appearance: Thin white female Attitude towards examiner: Calm and cooperative Psychomotor activity: Slightly increased psychomotor activity with some dyskinetic movements Behavior: She was appropriately during the interview, the crisis notes suggest that she was exhibiting some out of character behaviors before coming to the hospital Quality of speech: Talkative but not pressured Affect: Full range of affect Mood: Denied feeling depressed Suicidal Ideation: Denied thinking of suicide Homicidal Ideation: Denied violent thoughts or thoughts of homicide Hallucinations: She denied hallucinations Paranoid/Delusional Material: She denied current paranoid thoughts, she reported that she was having some paranoia prior to coming to the hospital, there were no delusions and today's interview Difficulties with thought organization: She was coherent to during today's interview, the information provided by the ict trainer including the collateral obtained from third alliance party sources suggested that she was having difficulties with thought organization prior to coming to the hospital Insight: Today she seems to agree that there was some behaviors that were out of character Judgment: Today she seems to have reasonable judgment, the judgment seems to have been impaired prior to arriving at the hospital Orientation: She was alert and oriented to time, place, and person Cognition: She does have history of impaired attention and concentration, for which she was prescribed Adderall Memory Function: She did not seem to have difficulties with short-term memory today Estimate of intellectual functioning: Average Assets/Strengths Patient Identified Assets/Strengths: The patient is physically healthy, social, and resourceful Impression/Plan Impression and Plan: A 27-year-old single white female who was admitted on a voluntary status after an ambulance brought her to the emergency room 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 - Include all active medical diagnosis that require tx DSM 5 Diagnosis(es): unspecified psychotic disorder 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 Opioid use disorder Stimulant use disorder Cannabis use disorder - Initial Tx Plan for Active Psych & Medical Conditions Treatment Plan: Inpatient psychiatric care with safety checks every 15 minutes Continue Suboxone 16 mg daily Discontinue Adderall/do not resume Adderall Group therapy, milieu therapy, and activity therapy Nursing assessments, vital signs, and patient education and Biopsychosocial assessment, collateral information, family meeting, and aftercare planning Daily evaluations of mental state by psychiatrist and medication monitoring - Factors that would help patient function - in a less restrictive setting. Factors: The patient will be discharged following the family meeting and once there is a safe discharge plan and 2 consecutive days without any disorganized behaviors or thoughts
[2017-11-27 11:55] VITALS: BP 105/65
--- NOTE | 2017-11-27 13:44 | History & Physical ---
General Information and HPI History of Present Illness: This young female is admitted for the first time to [facility] because of abnormal behavior and psychosis. She reports that she was sent from her school which she goes for education and an ambulance was called by the staff and she was sent to the hospital for evaluation. She claims she did not do anything wrong and does not know why she was sent to the hospital and admitted. She reports that she has a history of outpatient psychiatric treatment and had been seeing a psychiatrist for many years in [place] but for last 9 months her care has been changed to [facility] for outpatient psychiatry because no psychiatrist takes her insurance any more. She denies any ongoing significant medical problems in the past and denies any hospitalization. She denies any fractures major injuries or illnesses. 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 She admits to smoking about 7 cigarettes a day but denies drinking much alcohol. She denies doing any other illegal drugs. She claims she has been on Adderall for her ADD for last few months given to her by psychiatry. Allergies/Medications Allergies: Coded Allergies: No Known Allergies (11/25/17) Home Med list Buprenorphine (Buprenorphine HCl) 8 MG TAB.SUBL 2 TAB SL DAILY OPIOID DEPENDENCE (Reported) Dextroamphetamine/Amphetamine (Adderall XR 30 MG Capsule) 30 MG CAP.ER.24H 1 CAP PO QAM MENTAL HEALTH (Reported) Past History Travel History Traveled to [place] past 21 day No Medical History Neurological: NONE EENT: NONE Cardiovascular: NONE Respiratory: NONE Gastrointestinal: NONE Hepatic: NONE Renal: NONE Musculoskeletal: NONE Psychiatric: substance abuse, ADHD Suboxone maintence therapy Endocrine: NONE Blood Disorders: NONE Cancer(s): NONE TOP CAGER/Reproductive: NONE History of MRSA: No History of VRE: No History of CDIFF: No Isolation History: Standard Influenza Vaccine: 05/18/17 Surgical History Surgical History: non-contributory Past Family/Social History Psychosocial History Where do you live? Home ETOH Use: denies use Illicit Drug Use: marijuana Employment History Employment Unemployed Review of Systems Review of Systems Constitutional: Denies: no symptoms, see HPI, fever, weakness. EENTM: Denies: no symptoms. Cardiovascular: Denies: no symptoms. Respiratory: Denies: no symptoms. GI: Reports: bloating, constipation. Denies: abdominal pain, diarrhea, vomiting. Genitourinary: Denies: no symptoms. Musculoskeletal: Denies: no symptoms. Skin: Denies: no symptoms. Neurological/Psychological: Reports: see HPI, anxiety, depressed, emotional problems. Hematologic/Endocrine: Denies: no symptoms. Immunologic/Allergic: Denies: no symptoms. All Other Systems: Reviewed and Negative Exam & Diagnostic Data Last 24 Hrs of Vital Signs/I&O Vital Signs Date Time Temp Pulse Resp B/P B/P Pulse O2 O2 Flow FiO2 Mean Ox Delivery Rate 11/27 1155 99 105/65 11/27 0759 97.2 92 101/61 11/26 2002 98.5 98 20 109/57 11/26 1832 98.9 92 106/62 11/26 1805 97.3 94 16 133/72 98 Room Air 11/26 1645 97.4 93 16 130/67 97 Room Air Intake & Output 11/27 1600 11/27 0800 11/27 0000 Intake Total Output Total Balance Patient 99 lb 15.99 oz Weight Physical Exam General Appearance Alert, Oriented X3, Cooperative, No Acute Distress Skin No Rashes, No Breakdown, No Significant Lesion HEENT Atraumatic, PERRLA, EOMI, Mucous Membr. moist/pink Neck Supple, No JVD, No thryomegaly, +2 Carotid Pulse wo Bruit Lymphatic Cervical nl Cardiovascular Regular Rate, Normal S1, Normal S2, No Murmurs, Gallops, Rubs Lungs Clear to Auscultation, Normal Air Movement Abdomen Soft, No Tenderness, No Hepatospenomegaly, No Masses Neurological Exam Findings: Normal Gait, Normal Speech, Strength at 5/5 X4 Ext, Normal Tone, Cranial Nerves 3-12 NL, Reflexes 2+ Cranial Nerves II through XII: WNL Extremities No Clubbing, No Cyanosis, No Edema, No Tenderness/Swelling Assessment/Plan Assessment: This young female is admitted to the hospital for bizarre behavior and agitation. She admits to having problem with drug abuse in the past that she stopped about 9 months ago and has been on Suboxone since then. She admits to using opiates and OxyContin and Percocet in the past but has not used them recently she is also on her Adderall for ADD type disorder and given by psychiatry. From medical standpoint she has constipation but no other significant medical problems. Her admission labs including a CBC electrolytes liver functions are all within normal limits and the urine toxicology is positive for marijuana as well as amphetamine due to her Adderall she does not require any other specific medical workup or treatment except milk of magnesia on a when necessary basis. If it does not work then we will add MiraLAX type medication in addition As Ranked By This Provider Problem List: 1. Agitation 2. Elio 3. Substance abuse Miscellaneous Miscellaneous Documentation Attending Case Discussed With: Radha GOMEZ,Louie Primary Care Physician: Patient Has No Primary Care Dr Patient sees these Specialists none Level of Patient Care: ASHISH Herrera Attending MD Review Statement Attending Statement Attending MD Statement: examined this patient, reviewed EMR data (avail), discussed with nursing Attending Assessment/Plan: This young female is admitted for bizarre behavior possible elio and brought in from school with an ambulance. She has some constipation but there is no other acute medical problem at this time. She was advised to drink extra fluids and milk of magnesia will be given on a when necessary basis. Her admission blood work including CBC and CMP are all normal and she does not require any other workup or treatment.
[2017-11-27 16:12] VITALS: BP 110/54
--- NOTE | 2017-11-27 18:06 | SOCIAL WORKER PROG NOTE PSYCH ---
Social Work Progress Note Progress Note This typewriter repairer met with patient. She stated that prior to coming into the hospital she had been having difficulty with focusing, however, was unable to describe further or provide any examples. Patient stated that she went to talk to a long time family friend about how she had been feeling, but was unable to describe further or why she sought out this friend. Patient stated that people at school had been worried about her behavior. She was unable to identify what types of behavior she was displaying. Patient denied experiencing any change in her behaviors and/or moods. She stated that she had been sober from opiates since January 2017. She denied SI/HI/AH/VH. Patient was agreeable to a family meeting with her parents (Alexsandra and Odin). Patient was pleasant during this meeting, however, appeared to struggle with providing detail or demonstrating any understanding of current inpatient admission. This typewriter repairer spoke with patient's father, Odin ([phone]) and scheduled a family meeting with parents for 2pm on 11/27/17.
[2017-11-27 20:11] VITALS: BP 119/73
[2017-11-28 07:51] VITALS: BP 119/75
--- NOTE | 2017-11-28 08:03 | CP SOUTH PROGRESS NOTE PSYCH ---
Psych (Inpt) Progress Note Progress Note Vital Signs Date Time Temp Pulse B/P B/P O2 FiO2 11/28 0751 98.0 96 119/75 11/27 2010 98.5 76 119/73 Mental Status Examination: The patient was alert and oriented to time, place, and person. She was calm and cooperative. She reported that she slept well last night, she showed mildly increased psychomotor activity with minor dyskinetic movements, the patient was not talkative today/not pressured, she showed full range of affect, she denied feeling depressed, the patient denied thinking of suicide, the patient denied violent thoughts or thoughts of homicide, she denied hallucinations. The patient denied current paranoid thoughts although she was somewhat vague in her response to the questions, she reported that she was having some paranoia prior to coming to the hospital, there were no delusions in today's interview. She was -for the most part- coherent, she agreed that there were some behaviors that were [id number] She does have history of impaired attention and concentration, for which she was prescribed Adderall. She did not seem to have difficulties with her short-term memory today. 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
[2017-11-28 12:36] VITALS: BP 93/53
--- NOTE | 2017-11-28 15:47 | SOCIAL WORKER PROG NOTE PSYCH ---
Social Work Progress Note Progress Note [facility] concurrent review entered. Check web for next review date. Member Name Member ID Member Subscriber Name Subscriber ID RAMU STOKES [id number] 1990 RAMU Lopez JESSICAWaqas [id number] Pended Authorization # Client Authorization # Type of Request [id number] CONCURRENT Date of Admission/ Start of Services Requested From Submission Date 11/26/2017 11/28/2017 11/28/2017 Level of Service Type of Service Level of Care Type of Care INPATIENT/[facility] Inpatient [facility] - Inpatient Hospital Reason Code P77
[2017-11-28 16:03] VITALS: BP 104/77
--- NOTE | 2017-11-28 16:13 | SOCIAL WORKER PROG NOTE PSYCH ---
See Addendum Social Work Progress Note Progress Note Dr. Garcia and this typewriter assembler met with the patient for a family meeting with her parents, Odin and Alexsandra. Parent's discussed their concerns about patient, stating that the patient had been feeling overwhelmed with school and not sleeping. Patient's mother stated that she felt that the patient had been "spiraling down" in regard the her mood. Patient's father stated that he had observed her talking to herself and well as increased irritability. Dr. Garcia discussed medications, including reaction to stimulants. While initially resistant, patient was ultimately agreeable to attending [facility] and stated that she would like to do so through . Patient may have initially believed that [facility] was an inpatient program. Once learning that it was on an outpatient patient, she was more agreeable. She also discussed taking a couple months of from school in order to address and focus on her needs/health. Patient stated that she would like to return to [facility] for her Suboxone treatment. Anticipated discharge date is 12/01/17, with an intake scheduled with [facility] on that same day at 11:30am.
[2017-11-28 20:07] VITALS: BP 124/65
[2017-11-29 07:58] VITALS: BP 139/57
[2017-11-29 12:07] VITALS: BP 112/63
[2017-11-29 15:46] VITALS: BP 116/57
--- NOTE | 2017-11-29 15:52 | CP SOUTH PROGRESS NOTE PSYCH ---
Psych (Inpt) Progress Note Progress Note Include the following elements, when applicable: Involvement in the active treatment of the patient with behavioral observations of the patient and the patient's response to the treatment. Review of the ongoing treatment process in the context of the treatment plan. Indication of how multi-disciplinary staff members are carrying out the treatment plan. Plans for future interventions and recommendations for revision of the treatment plan. Liaison with other physicians/providers. Progress Note: Pleasant, complimenting to myself and others, somewhat effusive. Somewhat odd in affect and mannerisms, but otherwise no delusions or psychotic sx noted, likely just trying to make excess effort to appear that she is doing well, which it seems that she is. Stated that she is so happy to be off the stimulant and the ativan, that she felt it was holding her back and making her do crazy things like stalking type stuff with guys, and too intense. Sleeping and eating well. hopes to put some weight on since she is off of her adderall. MSE: well groomed, young woman, average stature. Pleasant and well related, good eye contact. Mildly odd affect and mannerisms, but no gross mental status abnormalities. Not psychotic or hallucinating. Speech is normal, affect is reactive. Mood is good to euphoric, happy about her future. thinking is linear and logical. Denies thoughts to harm self or others and is not depressed. Insight and judgment are adequate. 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 She has reconstituted and may have some residual symptoms she is still somewhat oddly related to me, and hope that this will improve or is part of her personality rather than residual affective sx. She has overall not been paranoid, not talking to herself and improved overall. Continue current plan of care. Educated not to call people who have told her they did not want phone calls and appears to be following through with this.
[2017-11-29 20:02] VITALS: BP 108/59
[2017-11-30 07:43] VITALS: BP 107/58
[2017-11-30 12:09] VITALS: BP 119/71
--- NOTE | 2017-11-30 15:00 | CP SOUTH PROGRESS NOTE PSYCH ---
Psych (Inpt) Progress Note Progress Note Include the following elements, when applicable: Involvement in the active treatment of the patient with behavioral observations of the patient and the patient's response to the treatment. Review of the ongoing treatment process in the context of the treatment plan. Indication of how multi-disciplinary staff members are carrying out the treatment plan. Plans for future interventions and recommendations for revision of the treatment plan. Liaison with other physicians/providers. Progress Note: Pleasant, well related. Slept very well on trazodone, wishes to continue it. Her parents are visiting. She is looking forward to discharge soon and to succeeding in IOP and avoiding stimulants. Not as odd as yesterday, still effusive but more appropriately. MSE: well groomed, young woman, average stature. She is pleasant and has good to intense eye contact. She has no psychomotor changes. Her mood is good and her affect is full and reactive. Her thinking is coherent. No delusional thinking, no disorganization and no thoughts to harm herself or anyone else. Insight and judgment are adequate. 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 She has reconstituted and may have some residual symptoms. Continue current plan of care. c/o pain from tooth, inflammation in right side noted. Ordered anbeson prn analgesia. She stated that she will call dentist tmr for appt.
[2017-11-30 16:02] VITALS: BP 106/61
[2017-11-30 19:06] VITALS: BP 127/74
[2017-12-01 07:57] VITALS: BP 110/65
[2017-12-01] MEDS ORDERED: BUPRENORPHINE HC8 MG SL (09:04)
[2017-12-01] MEDS ORDERED: TRAZODONE HCL50 M1 PO (09:04)
[2017-12-01] MEDS ORDERED: ABILIFY5 M1 PO (09:09)
--- NOTE | 2017-12-01 09:14 | Patient Discharge Instructions ---
Psych Discharge Inst General Discharge Information Reason for Admission: abnormal behaviors Psy Discharge Primary Diag+ unspecified psychotic dis Psy Discharge Secondary Diag+ ADHD Summary Tests/Major Procedures No significant abnormalities in tests Studies Pending at DC: None Patient Instructions Contact Information Your Psychiatrist on [facility] was Louie Garcia MD * If you are experiencing an emergency related to this hospitalization, please call [phone] to contact the treating psychiatrist or the psychiatrist-on- call. * To Request a copy of your medical records, please contact the Medical Records Department at [phone]. * To request results of studies pending at the time of discharge, please call [phone]. * Continue your Medications until directed to stop by your Healthcare provider. General Medication Information Please continue to take your new medications and your continued home medications , unless otherwise indicated on your discharge medication list, or unless directed by your MD or SCHOOL BUSINESS ADMINISTRATOR to stop them. Special Instructions Diet Regular Activity Normal - Tobacco Use Treatment Offered Post DC Medications Offered: Refused Tob Medication Tx Post DC Tobacco Treatment Plan: Refused Tobacco Tx Pgm - EtOH/Drug Use D/O Treatment Offered Post DC Medications Offered: NA-No EtOH/Drug Use D/O Post DC EtOH/SubAbuse TX Plan: NA-No EtOH/Drug Use D/O Metabolic Screening Not Applicable, patient not on a neuroleptic. has not started Abilify yet, written as adischarge Rx to start tomorrow morning Advance Directives Does the Patient have Medical Advance Directives No/Refused further info Does Pt have Psychiatric Advance Directives? No/Refused further info Does Patient have a Designated Surrogate Decision Maker: No Information About Psychiatric Advance Directives Provided? Refused Discharge Plan Post Hospital Treatment Plan: IOP
--- NOTE | 2017-12-01 11:58 | DISCHARGE SUMMARY REPORT-PSYCH ---
Visit Information Visit Dates/Diagnosis' Admission Date: 11/26/17 Discharge Date: 12/01/17 Reason for Admission: abnormal behaviors Psy Discharge Primary Diag: unspecified psychotic dis Psy Discharge Secondary Diag: ADHD Hospital Course Course Allergies: Coded Allergies: No Known Allergies (11/25/17) Discharge HBIPS - Tobacco Use Treatment Offered - EtOH/Drug Use D/O Treatment Offered Metabolic Screening - Screen if on a Neuroleptic Medication - Metabolic screening should include: - Blood Pressure, BMI, Glucose or Hgb A1c, & a - Lipid profile from within the past 365 days. Metabolic Screening N/A, patient has not started Abilify yet, started upon discharge Discharge Instructions General Discharge Information Multiple Neuroleptics: ([X]) Not Applicable Discharge Diet Regular Discharge Activity Normal DC Disposition: Home Referrals Ordered Referrals Provider Referral 12/01/17 For Groups: [[facility]] [facility] [address], [place] [phone] IOP Intake appointment: 12/01/17, at 11:30am Provider Referral For Groups: [[facility]] [facility]ona [facility] [address] [place] [address] Patient will contact [facility] to schedule an appointment. Provider Referral 12/03/17 For Providers: [[facility]] For Groups: [Smoking Cessation Group] Post Discharge Smoking Cessation Group [facility] [address], [place] [phone] Group meets every other Friday at 4pm Next Group: 12/03/17, at 4pm Prescriptions Stop taking the following medications: Dextroamphetamine/Amphetamine (Adderall XR 30 MG Capsule) 30 MG CAP.ER.24H ORAL Every Morning Qty = 30 Continue taking these medications: Buprenorphine (Buprenorphine HCl) 8 MG TAB.SUBL 2 Tablet SUBLINGUAL DAILY Qty = 60 Comments: Last Taken:12/01/17 Time:8am This prescription has been renewed Start taking the following new medications: Trazodone HCl (Trazodone HCl) 50 MG TABLET 50 Milligram ORAL Every night as needed for SLEEP Qty = 1 No Refills Comments: Last Taken:12/01/17 Time:8am Aripiprazole (Abilify) 5 MG TABLET 1 Tablet ORAL DAILY Qty = 30 No Refills Comments: has not yet started taking Studies Pending at Discharge None
--- NOTE | 2017-12-01 13:13 | CP SOUTH PROGRESS NOTE PSYCH ---
Psych (Inpt) Progress Note Progress Note I reviewed Dr. Farley's notes from 11/29 and 2017 The patient's progress, treatment plan, and aftercare plan were reviewed and the treatment team meeting this morning. Mental status examination: Pleasant, well related. Slept very well on trazodone, wishes to continue it. She is looking forward to discharge soon and to succeeding in IOP. She is pleasant and has good to intense eye contact. She has no psychomotor changes. Her mood is good and her affect is full and reactive. Her thinking is coherent. No delusional thinking, no disorganization and no thoughts to harm herself or anyone else. Insight and judgment are adequate. 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 She has reconstituted and may have some residual symptoms. c/o pain from tooth, inflammation in right side noted. She stated that she will call dentist for appt. Treatment plan update: Discharge home with intensive outpatient program as follow-up
--- NOTE | 2017-12-01 15:17 | SOCIAL WORKER PROG NOTE PSYCH ---
Social Work Progress Note Progress Note This song writer met with patient. Patient expressed feeling happy about discharging today. She described her mood as "awesome" and denied SI/HI/AH/VH. Patient stated that she has no intention of having any contact with [facility] now or in the future. Patient identified a safety plan in which she would return to the hospital. Patient stated that she plans to take 8 weeks off from school. She was also informed that she would be provided with crisis numbers and warm line numbers, which she was agreeable to utilizing. Patient was informed that this song writer has left a vm for Eloina Young at [facility] regarding Suboxone treatment. If call is not returned by the time the patient discharges, the patient has agreed to contact them herself. Patient accepted an IOP intake appointment with for 12/01/17 at 11:30am. Patient and this song writer contacted her father by phone to review discharge plans. He was agreeable to this and did not have any concerns about discharge. He stated that he would meet the patient at the unit and accompany her to the IOP intake. Patient was agreeable with this plan. This song writer spoke with Eloina Young ([phone]) at [facility]. She stated that they would continue as the patient's Suboxone provider, however, [facility] would need to provide other psychiatric treatment/medication management until IOP is completed. Eloina stated that the patient has an appointment scheduled for 12/16/17 at 2:30pm with Yessi Reich APRN. Eloina requested that the IOP and/or patient provide two weeks notice when scheduling an individual therapy appointment as part of the IOP discharge plan. Upon her inquiry, Eloina was informed of patient's reason for inpatient admission. She requested that discharge paperwork is faxed to them (fax [phone]). Eloina was informed that this song writer attempted to reach [facility] on 11/28/17 without success. Patient was informed of this call and the appointment and agreeable to the Patient Health Summary being faxed to [facility]. Faxed Referral(s) 1 Referred To: [facility] Transition of Care Documents sent: Health Summary Faxed to: [facility] Fax #: [phone] Faxed by: Annabella Bashir LCSW Date faxed: 12/01/17 Time Faxed: [phone] Faxed Referral(s) 2 Referred To: [facility] Transition of Care Documents sent: Health Summary Faxed to: [facility] Fax #: [phone] Faxed by: Annabella Bashir LCSW Date faxed: 12/01/17 Time Faxed: [phone]
--- NOTE | 2017-12-01 16:34 | SOCIAL WORKER PROG NOTE PSYCH ---
Social Work Progress Note Progress Note As discussed with Yessi Loaiza at [facility]: review due on 11/30/17. as patient discharged on 12/01/17, this review was completed to request authorization of remaining inpatient days.: Member Name Member ID Member Subscriber Name Subscriber ID RAMU STOKES [id number] 1990 RAMU FERREIRAKORINLEON [id number] Pended Authorization # Client Authorization # Type of Request [id number] CONCURRENT Date of Admission/ Start of Services Requested From Submission Date 11/26/2017 12/01/2017 12/01/2017 Level of Service Type of Service Level of Care Type of Care INPATIENT/[facility] Inpatient [facility]patient [facility] - Inpatient Hospital
== END 2017-12-01 11:35 | DRG 751 ==
LOC: ERH 14:14 → ENTRNSPT 11-26 16:38 → EDBEDREQ 11-26 16:40 → ERH 11-26 17:12 → CP SOUTH 11-26 17:12 → ERHI 11-26 17:12 → EDTRNSPT 11-26 17:23 → CP SOUTH 11-26 18:05 → CMPTRNSPT 11-26 18:12 → ENRESERV 11-26 23:59 → CP SOUTH 11-27 10:13
PROVIDERS: Emergency Medicine
DX: F23 Brief psychotic disorder (principal); F90.9 Attention-deficit hyperactivity disorder, unspecified type
CPT/HCPCS: 80307; 81001; 81025; 90834; 96372; G0480; J1200; J1630